=== PATIENT | female | born 1975 | race Caucasian/White ===

== ENCOUNTER → 2020-08-23 | Outpatient (CLI) | payer MEDICARE | LOC: RAD 15:07 | DX: Z76.89 Persons encountering health services in other specified circumstances (principal); M47.812 Spondylosis without myelopathy or radiculopathy, cervical region; M25.552 Pain in left hip ==

== ENCOUNTER 2020-10-16 15:37 | Emergency (ER) | payer MEDICARE ==
[2020-10-16] MEDS ORDERED: MELOXICAM15 MG PO (16:19)
[2020-10-16] MEDS ORDERED: BACLOFEN5 MG PO (16:19)
[2020-10-16] MEDS ORDERED: NORCO 325 MG-7.1 TA1 PO (16:20)
[2020-10-16 16:52] LABS: URINE APPEARANCE HAZY; URINE BILIRUBIN NEGATIVE (NEGATIVE); URINE BLOOD NEGATIVE (NEGATIVE); URINE COLOR YELLOW; URINE GLUCOSE NEGATIVE (NEGATIVE); URINE KETONE TRACE (NEGATIVE); URINE LEUKOCYTE ESTERASE NEGATIVE (NEGATIVE); URINE NITRATE NEGATIVE (NEGATIVE); URINE PROTEIN(semi-quant) TRACE mg/dL (NEGATIVE); URINE UROBILINOGEN NORMAL (NORMAL)
[2020-10-16 16:53] LABS: URINE MUCUS PRESENT (NOT PRESENT)
[2020-10-16] MEDS ORDERED: MEDROL DOSEPAK4 MG PO (17:35)
[2020-10-16] MEDS ORDERED: NORCO 325 MG-51 TA1 PO (17:35)
[2020-10-16 18:03] VITALS: BP 135/67
== END 2020-10-16 18:03 | disposition home or self-care (01) ==
LOC: ED 15:37
PROVIDERS: Nurse Practitioner Family
DX: M54.16 Radiculopathy, lumbar region (principal); M54.5 Low back pain; Z91.410 Personal history of adult physical and sexual abuse
CPT/HCPCS: J1100